=== PATIENT | male | born 1955 | race Caucasian/White ===

== ENCOUNTER → 2023-10-20 12:06 | Outpatient (REF) | payer MEDICARE, SELFPAY | LOC: HWRAD 12:06 | PROVIDERS: ATTENDING PHYSICIAN Family Medicine | DX: M25.511 Pain in right shoulder (principal) | CPT/HCPCS: 73000; 73030 ==

== ENCOUNTER 2024-06-16 03:18 | Emergency (ER) | payer MEDICARE, SELFPAY ==
[2024-06-16 03:28] VITALS: BP 143/86
--- NOTE | 2024-06-16 05:28 | ED.GENMED ---
History of Present Illness
General
Chief Complaint: Fatigue
Source: patient
Exam Limitations: none
Time Seen by Provider: 06/16/24 05:22
Nursing documentation reviewed up to this point in time: agreed with
History of Present Illness
History of Present Illness:
This is a 68-year-old gentleman who has history of Crohn's disease, chronically maintained on azathioprine. He also has history of Lyme disease 3 to 4 years ago, treated with oral antibiotics without history of or sequelae.
He states on June 03 he was helping to clean up an outdoor environment and was exposed to several ticks. He did have 3 layers of clothing on and although found some ticks on his clothing he did not find any ticks embedded on his skin.
He woke up in the middle the night with complaints of fatigue, generalized aches without a fever. He was concern for possible Lyme disease. He has not noticed a rash. No cough, no abdominal pain. No UTI symptoms.
Past History
Past History
ED Past Medical History: HTN, Hypercholesterolemia and Other (Crohn's disease)
ED Past Surgical History: Bowel resection
Social History
Tobacco: Non-smoker
Personal:
Living: with family
Employment: Employed
Family History
Family History: Other (Noncontributory)
Phy Exam
Physical Exam
Physical Exam:
GENERAL: 68-year-old gentleman appears his stated age, awake and alert, pleasant, appears in no acute distress. Vital signs within normal limits.
EYE: anicteric
NECK: Supple, nontender, no meningismus, no significant adenopathy.
ENT: oral mucosa is moist. No rhinorrhea.
CARDIAC: Regular rate and rhythm. no murmur.
LUNGS: Clear breath sounds bilaterally, no acute respiratory distress, no wheezes/rales/rhonchi
ABDOMEN: Soft, nondistended, without focal tenderness, no r/g, no cvat. normoactive BS.
NEUROLOGICAL: Alert and oriented x3, no focal neuro deficits. Gait is lo and steady.
SKIN: Warm and dry, normal color, skin intact. No rash.
MUSCULOSKELETAL: No C/C/E. peripheral pulses are full and equal b/l. No palpable tenderness.
PSYCH: Normal and appropriate interaction.
Course
Orders/Labs/Results
Orders:
Orders
06/16/24 03:34
EKG [Electrocardiogram (*1)] Urgent
Reason for Study: Fatigue / Weakness
EKG- Treatment ONCE
06/16/24 04:56
Complete Blood Count/With Diff Urgent
Comprehensive Metabolic Panel Urgent
06/16/24 05:28
Lyme Progressive Urgent
Abnormal Lab Results
06/16/24
04:56
RBC 4.38 L 10^6/uL
(4.70-6.10)
MCH 33.3 H pg
(27.0-31.0)
MPV 11.4 H fL
(7.4-10.4)
Absolute Lymphs (auto) 0.8 L 10^3/uL
(1.2-3.4)
Neutrophils % 78.7 H %
(42.2-75.2)
Lymphocytes % 11.9 L %
(20.5-51.1)
Chloride 110 H mmol/L
(98-107)
Glucose 103 H mg/dl
(70-99)
06/16/24 04:56
06/16/24 04:56
Vital Signs
Initial and Last Documented VS:
Initial Vital Signs
Temp Pulse Resp BP Pulse Ox
97.8 F 71 20 143/86 95
06/16/24 03:28 06/16/24 03:28 06/16/24 03:28 06/16/24 03:28 06/16/24 03:28
Last Documented Vital Signs
Temp Pulse Resp BP Pulse Ox
97.8 F 71 20 143/86 95
06/16/24 03:28 06/16/24 03:28 06/16/24 03:28 06/16/24 03:28 06/16/24 03:28
MDM/Problems Addressed
Differential Diagnosis Includes:
Patient exposed to ticks 2 weeks ago.
Concern for fatigue that woke him from sleep this morning.
Overall nontoxic in appearance, afebrile. No rash appreciated.
Nothing in history nor exam to suggest acute Crohn's flare.
Prior history of Lyme disease thus he should have some natural immunity however is immunocompromised.
Labs are pending. Will add a Lyme titer. Would not recommend initiation of prophylactic antibiotic especially without definitive signs of Lyme disease.
EKG is unremarkable, normal sinus rhythm, normal intervals, no acute ST-T wave abnormalities.
If routine labs are unremarkable will discharge to home. Lyme progressive is pending.
Follow-up with PCP.
Chronic conditions affecting care: Immunosuppressed
*Pulse Oximetry
Patient hypoxic: no
*EKG
Interpreted by ED Provider?: Yes
Interpretation: normal
Comparison EKG: no changes (Unchanged from previous October 2014)
Rate: normal
Rhythm: sinus
[place]: normal axis
Interval: normal interval
QRS Pattern: normal QRS
Ischemia: no ischemia
*Critical Care Note
Total Time (30-74mins, 75-104mins- exclusive of procedures): Not Applicable
ED Attending Note
-
Portions of this chart may have been created with voice recognition software.� Occasional wrong word or��sound alike� substitutions may have occurred due to the inherent limitations of voice recognition software.
Discharge Plan
Departure
Patient Disposition: Home (Routine Discharge)
Date of Disposition: 06/16/24
Time of Disposition: 05:45
Patient with high blood pressure during this ER visit?: No
Discharge Problem:
Fatigue
Instructions: Fatigue (DC)
Prescriptions:
No Action
azathioprine 50 MG tablet
150 mg PO DAILY
gemfibrozil 600 MG tablet
600 mg PO BID
multivitamin Tablet
1 tab PO DAILY
losartan 50 mg Tablet
50 mg PO DAILY
atorvastatin 20 mg Tablet
20 mg PO DAILY
Patient Comments:
pt does not know mg
diphenoxylate-atropine [Lomotil] 2.5-0.025 mg Tablet
4 tab PO DAILY
Patient Comments:
02/15/2023: last filled 12/22/22, 360 tabs for 90 days from [facility]
folic acid 400 mcg Tablet
0.4 mg PO DAILY
alfuzosin 10 mg Tablet Extended Release 24 Hr
10 mg PO QPM
cholecalciferol (vitamin D3) [Vitamin D3] 125 mcg (5,000 unit) Tablet
125 mcg PO Q48H
Vitamin B12 Tab
1 tab PO DAILY
Patient Comments:
pt does not know mg
cyclosporine [Restasis] 0.05 % Dropperette
1 drp BOTH EYES BID
Gemtesa 75 mg tablet
75 mg PO DAILY
acetaminophen [acetaminophen] 325 mg tablet
650 mg PO Q4HPRN PRN (Reason: mild pain) Qty: 1 0RF
ibuprofen 200 mg tablet
400 - 600 mg PO Q6HPRN PRN (Reason: moderate pain) Qty: 1 0RF
oxycodone 5 mg tablet
5 mg PO Q4HPRN PRN (Reason: breakthrough/severe pain) Qty: 10 0RF
polyethylene glycol 3350 [HealthyLax] 17 gram Powder In Packet
17 g PO DAILY Qty: 30 0RF
Referrals:
UNKNOWN - PT DOES,NOT KNOW [Family Provider] - Call in 1-3 days for appt
Interventions
Interventions:
*Risk Screen - Suicide Last Done: 06/16/24 03:28
*General Assessment Last Done: 06/16/24 04:55
*Neglect/Abuse Screening Last Done: 06/16/24 04:55
Discharge Date and Time
Print Language: BELGIAN
[2024-06-16 05:30] LABS: ALT (SGPT) 32 U/L (0-50); AST (SGOT) 27 U/L (17-59); Albumin 4.2 g/dl (3.5-5.0); Alkaline Phosphatase 86 U/L (38-126); Blood Urea Nitrogen 20 mg/dl (9-20); Calcium 9.3 mg/dl (8.4-10.2); Carbon Dioxide 23 mmol/L (22-30); Chloride 110 mmol/L (98-107); Glucose 103 mg/dl (70-99); Potassium 4.4 mmol/L (3.5-5.1); Sodium 142 mmol/L (135-145); Total Bilirubin 0.8 mg/dl (0.2-1.3); Total Protein 6.4 g/dl (6.3-8.2); eGFR > 60.00
[2024-06-16 05:32] LABS: % Basophils 0.4 % (0-2); % Eosinophils 2.4 % (0-6); % Immature Granulocytes 0.3 % (0-0.5); % Lymphocytes 11.9 % (20.5-51.1); % Monocytes 6.3 % (1.7-9.3); % Neutrophils 78.7 % (42.2-75.2); Absolute Eosinophils 0.2 10^3/uL (0-0.7); Absolute Lymphocytes 0.8 10^3/uL (1.2-3.4); Absolute Monocytes 0.4 10^3/uL (0.1-0.6); Absolute Neutrophils 5.3 10^3/uL (1.4-6.5); Hematocrit 40.2 % (39.0-52.0); Hemoglobin 14.6 g/dL (13.0-18.0); Mean Corp Hgb Conc. 36.3 g/dL (33.0-37.0); Mean Corpuscular Hgb 33.3 pg (27.0-31.0); Mean Corpuscular Volume 91.8 fL (80.0-94.0); Mean Platelet Volume 11.4 fL (7.4-10.4); Nucleated Red Blood Cells % 0 % (-); Platelet Count 141 10^3/uL (130-400); Red Blood Cell Count 4.38 10^6/uL (4.70-6.10); Red Cell Dist. Width 13.1 % (11.5-14.5); White Blood Cell Count 6.7 10^3/uL (4.8-10.8)
[2024-06-16 13:40] LABS: Lyme Antibody Screen, EIA Negative (Negative)
== END 2024-06-16 06:04 | disposition home or self-care (01) ==
LOC: EMR 03:18
PROVIDERS: EMERGENCY PHYSICIAN Emergency Medicine
DX: R53.83 Other fatigue (principal); M79.10 Myalgia, unspecified site; K50.90 Crohn's disease, unspecified, without complications; I10 Essential (primary) hypertension; E78.00 Pure hypercholesterolemia, unspecified; Z85.47 Personal history of malignant neoplasm of testis; Z86.19 Personal history of other infectious and parasitic diseases; Z79.899 Other long term (current) drug therapy; Z98.0 Intestinal bypass and anastomosis status; Z88.2 Allergy status to sulfonamides
CPT/HCPCS: 99283; 80053; 85025; 86618; 93005

== ENCOUNTER 2024-08-01 20:47 | Inpatient (IN) | payer MEDICARE, SELFPAY ==
[2024-08-01] VITALS (7 sets, daily range): BP systolic 106–154; BP diastolic 58–82; PULSE 60–64; BMI 26.4; BMI 26.5
[2024-08-01 13:47] LABS: % Basophils 0.6 % (0-2); % Eosinophils 1.9 % (0-6); % Immature Granulocytes 0.2 % (0-0.5); % Monocytes 12.4 % (1.7-9.3); % Neutrophils 72.9 % (42.2-75.2); Absolute Eosinophils 0.1 10^3/uL (0-0.7); Absolute Lymphocytes 0.6 10^3/uL (1.2-3.4); Absolute Monocytes 0.6 10^3/uL (0.1-0.6); Absolute Neutrophils 3.8 10^3/uL (1.4-6.5); Hematocrit 41.5 % (39.0-52.0); Hemoglobin 15.2 g/dL (13.0-18.0); Mean Corp Hgb Conc. 36.6 g/dL (33.0-37.0); Mean Corpuscular Hgb 33.4 pg (27.0-31.0); Mean Corpuscular Volume 91.2 fL (80.0-94.0); Mean Platelet Volume 11.5 fL (7.4-10.4); Nucleated Red Blood Cells % 0 % (-); Platelet Count 172 10^3/uL (130-400); Red Blood Cell Count 4.55 10^6/uL (4.70-6.10); Red Cell Dist. Width 13.3 % (11.5-14.5); White Blood Cell Count 5.2 10^3/uL (4.8-10.8)
[2024-08-01 14:10] LABS: ALT (SGPT) 20 U/L (0-50); AST (SGOT) 23 U/L (17-59); Albumin 4.2 g/dl (3.5-5.0); Alkaline Phosphatase 79 U/L (38-126); Blood Urea Nitrogen 20 mg/dl (9-20); Calcium 8.8 mg/dl (8.4-10.2); Carbon Dioxide 24 mmol/L (22-30); Chloride 105 mmol/L (98-107); Glucose 94 mg/dl (70-99); Lipase 40 U/L (23-300); Sodium 139 mmol/L (135-145); Total Bilirubin 1.2 mg/dl (0.2-1.3); Total Protein 6.8 g/dl (6.3-8.2); eGFR > 60.00
--- NOTE | 2024-08-01 15:01 | EDRN ---
Rey Dang BANDER in to see pt.
--- NOTE | 2024-08-01 15:02 | ED.GENMED ---
History of Present Illness
General
Chief Complaint: Abdominal Pain
Source: patient
Exam Limitations: none
Time Seen by Provider: 08/01/24 14:49
Nursing documentation reviewed up to this point in time: agreed with
History of Present Illness
History of Present Illness:
Patient to ED with complaint of upper abd. pain. States he has a history of Gerd, ususally takes pepcid as needed. States over the past few weeks Pepcid stopped working for him. He has a history of Crohn's and follows with Dr. Santana. He [place]
the office and was given rx for pantoprozole. States he took a dose AM and upper abd. pain became worse. He took it on Thursday and pain continued to worsen. He then stopped med. He called the GI office but has not received a return call.
To ED accompanied by spouse. Denies fever/chills. +nausea, no vomiting. +diarrhea but this is typical for him.
Past History
Past History
ED Past Medical History: GERD, HTN, Hypercholesterolemia and Other (Crohn's disease, kidney stones)
ED Past Surgical History: Bowel resection
Social History
Tobacco: Non-smoker
Personal:
Living: with family
Employment: Employed
Family History
Family History: Other (Noncontributory)
Review of Systems
Review of Systems
Allergies reviewed?: Yes
All Other Systems: ROS reviewed and negative except as documented in HPI and ROS
Constitutional: Reports no symptoms
EENT: Reports no symptoms
Respiratory: Reports no symptoms
Cardiac: Reports no symptoms
ABD/GI: Reports abdominal pain, nausea and diarrhea
: Reports no symptoms
Musculoskeletal: Reports no symptoms
Skin: Reports no symptoms
Neurological: Reports no symptoms
Psychiatric: Reports no symptoms
Phy Exam
General Physical Exam
General Presentation: mild distress
General age: appears stated age
General Skin: warm and dry
General Habitus: normal
Cardiovascular Exam
Cardiovascular Exam: regular rate/rhythm
Gastrointestinal Exam
Gastrointestinal Exam: normal bowel sounds, soft, no organomegaly, no pulsatile mass and non distended
Palpation: left upper quadrant: Moderate tenderness, left lower quadrant: Mild tenderness, right upper quadrant: Moderate tenderness and right lower quadrant: Mild tenderness
Musculoskeletal Exam
Musculoskeletal Exam: full ROM
Skin Exam
Skin Exam: normal color, warm/dry and no rash
Psychiatric Exam
Psychiatric Exam: normal mood/affect
Course
Orders/Labs/Results
Orders:
Orders
08/01/24 13:33
Electrocardiogram (*1) Urgent
Reason for Study: Abdominal Pain
EKG- Treatment ONCE
IV Insert/Care/Rem.- Treatment PRN
08/01/24 13:39
Complete Blood Count/With Diff Urgent
Comprehensive Metabolic Panel Urgent
Lipase Urgent
08/01/24 15:01
Iohexol [Omnipaque] See Protocol PO NOW STA
US Abdomen Complete/Upper Urgent
Comment:
Reason For Exam: upper abd. pain.
08/01/24 15:02
CT Abd/pel W Iv And Oral Contr Urgent
Comment:
Reason For Exam: abd. pain, hx crohns
08/01/24 17:32
0.9% Sodium Chloride 1000 ml [Nss] 1,000 ml IV BOLUS
08/01/24 20:27
Admit/Transfer Patient As Directed
Co-Sign Provider:
Level of Care: Inpatient admission
Assign to:: Medical/Surgical
Physician / Group: Jose
Diagnosis: Terminal Ileitis / Crohn's
Reason for Hospitalization: Terminal Ileitis / Crohn's
Expected length of stay greater than two midnights?: Yes
ELOS- Estimated Length of Stay in days: 3
I certify the patient meets the requirements for IP care: Yes
PRN Pain Medication Management As Directed
May give lesser potent ordered pain med per pt: Yes
preference::
Protocol:: Medication orders for pain may be administered in a
manner that supports deferring to patient preference
when the pt is:
- Requesting an ordered lesser potent pain medication.
Least to most potent pain medications are defined
as: acetaminophen < NSAID < tramadol < opioids
(morphine, oxycodone, hydromorphone).
- Requesting a lesser dose of the same medication IF
ORDERED.
- Requesting a less intrusive route of administration
if both routes are prescribed by the provider (PO <
IV).
08/01/24 20:28
Code Status As Directed
Resuscitation Status: Full Code
Abnormal Lab Results
08/01/24
13:39
RBC 4.55 L 10^6/uL
(4.70-6.10)
MCH 33.4 H pg
(27.0-31.0)
MPV 11.5 H fL
(7.4-10.4)
Absolute Lymphs (auto) 0.6 L 10^3/uL
(1.2-3.4)
Lymphocytes % 12.0 L %
(20.5-51.1)
Monocytes % 12.4 H %
(1.7-9.3)
08/01/24 13:39
08/01/24 13:39
Vital Signs
Initial and Last Documented VS:
Initial Vital Signs
Temp Pulse Resp BP Pulse Ox
97.8 F 83 17 134/78 97
08/01/24 13:30 08/01/24 13:30 08/01/24 13:30 08/01/24 13:30 08/01/24 13:30
Last Documented Vital Signs
Temp Pulse Resp BP Pulse Ox
98.3 F 80 20 153/82 98
08/01/24 19:44 08/01/24 19:44 08/01/24 19:44 08/01/24 19:44 08/01/24 19:44
*Radiology
Radiology exam reviewed: radiology read reviewed
*Pulse Oximetry
Patient hypoxic: no
*Critical Care Note
Total Time (30-74mins, 75-104mins- exclusive of procedures): Not Applicable
Update Note
Update Note:
Patient to ED with complaint of upper abdominal pain. CT confirms ileum obstruction. NO vomiting in ED. Afebrile. Discussed findings iwth patient. Will admit to hospitalist service.
ED Attending Note
-
Portions of this chart may have been created with voice recognition software.� Occasional wrong word or��sound alike� substitutions may have occurred due to the inherent limitations of voice recognition software.
Discharge Plan
Departure
Patient Disposition: Admit
Date of Disposition: 08/01/24
Time of Disposition: 18:52
Presentation/result/management discussed w/ accepting MD/DO: Hospitalist
Patient with high blood pressure during this ER visit?: No
Condition: Fair
Discharge Problem:
SBO (small bowel obstruction)
Interventions
Interventions:
*Risk Screen - Suicide Last Done: 08/01/24 13:30
*General Assessment Last Done: 08/01/24 15:20
*Neglect/Abuse Screening Last Done: 08/01/24 13:30
*ED- Fall Risk Assessment Last Done: 08/01/24 15:20
*ED COVID-19 Vaccine History Last Done: 08/01/24 15:20
RQ-Avcbif-Pkkxoxlitr Assessment Last Done: 08/01/24 19:44
[2024-08-01] MEDS: OMNIPAQUE 50 ML PO (15:24)
--- NOTE | 2024-08-01 16:14 | EDRN ---
Pt OOB to [facility] and back at this time. Pt drinking for CT and awaiting to go to [place].
[2024-08-01] MEDS: NSS 1000 IV (18:10)
--- NOTE | 2024-08-01 20:32 | HPS.HSE ---
Family Physician
-
Family Physician: Yann Plunkett
Chief Complaint
-
Abd Pain / Heartburn
History of Present Illness
Patient is a 68y M with PMH significant for Crohn's disease who presents to ED complaining of abdominal pain and heartburn x 3 weeks. Patient states that he started having severe indigestion / heartburn about 3 weeks ago. Symptoms would
frequently wake him in the night. He took OTC medications without relief. He contacted his GI office who ultimately prescribed Protonix. He took two doses of this and his symptoms seemed to worsen. Over the weekend, he had continued heartbuirn
as well as new mid-abdominal pain. No N/V. He has had watery / 'valeri' stools without noted mucus / blood.
No fevers / chills. No urinary complaints. No recent travel or known sick contacts.
Medical History
Past Medical History
Past Medical History: Reports Other
Additional Past Medical History:
Crohn's Disease
Hypertension
Testicular Cancer
Nephrolithiasis
Past Surgical History: Reports Other
Additional Past Surgical History:
Ex Lap / Small Bowel Resection (1989)
Orchiectomy
Cholecystectomy
Lithotripsy
Social History
Tobacco: Non-smoker
Alcohol: None
Drug: None
Family History
Family History: Not pertinent
Allergies / Home Medications
Allergies reflects when Allergies were last updated in [employer].
Home Medications with original date entered in [facility]
Allergy/Medication List:
Allergies
Allergy/AdvReac Type Severity Reaction Status Date / Time
infliximab (From Remicade) Allergy hives, Verified 08/01/24 18:12
drug
induced
lupus
Sulfa (Sulfonamide Allergy Hives Unverified 08/01/24 18:12
Antibiotics)
Home Medications
azathioprine 50 mg tablet 150 mg PO DAILY crohn's disease 11/07/14
alfuzosin 10 mg tablet,extended release 24 hr 10 mg PO QPM Urinary Issue 02/15/23
cyanocobalamin (vitamin B-12) 1,000 mcg tablet 1,000 mcg PO DAILY Supplement ##0 02/15/23
cyclosporine 0.05 % eye drops in a dropperette (Restasis) 1 drp BOTH EYES BID Eye Condition 02/15/23
diphenoxylate-atropine 2.5 mg-0.025 mg tablet (Lomotil) 2 tab PO DAILY diarrhea 02/15/23
folic acid 400 mcg tablet 0.4 mg PO DAILY Supplement 02/15/23
losartan 50 mg tablet 50 mg PO DAILY Blood Pressure 02/15/23
multivitamin (Daily Multi-Vitamin tablet) 1 tab PO DAILY Supplement 02/15/23
vibegron 75 mg tablet (Gemtesa) 75 mg PO HS Urinary Issue 02/15/23
atorvastatin 40 mg tablet (Lipitor) 40 mg PO QPM 08/01/24
cholestyramine 4 gram oral powder for suspension in a packet 4 g PO BID 08/01/24
meloxicam 15 mg tablet 15 mg PO HS 08/01/24
Review of Systems
-
History Source: Patient
A 12 point ROS was completed and negative except as noted: Yes
Constitutional: Denies Fever or Chills
Respiratory: Denies Cough or Trouble Breathing
Cardiac: Denies Chest Pain or Palpitations
Abdomen/GI: Reports Abdominal Pain, Diarrhea and Other (Heartburn.); Denies Nausea, Vomiting, Bloody Stools or Black Stools
: Denies Dysuria or Frequency
Musculoskeletal: Denies Joint Pain or Edema
Neurological: Denies Dizzy or Headache
Physical Exam
Vital Signs
Vital Signs
Temp Pulse Resp BP Pulse Ox
98.3 F 80 20 153/82 98
08/01/24 19:44 08/01/24 19:44 08/01/24 19:44 08/01/24 19:44 08/01/24 19:44
Physical Exam
General: Other (68y M in no acute distress.)
HEENT: Moist mucous membranes
Respiratory: Clear; No Wheezes, Rales or Rhonchi
Cardiac: S1/S2 and Regular Rhythm; No Murmur
GI: Soft, Non Distended, Normal Bowel Sounds and Other (Pos mid-abdominal / RLQ tenderness without rebound or guarding.)
Musculoskeletal: No Clubbing, No Cyanosis and No Edema
Neuro: AO x 3
Laboratory Results
-
08/01/24 13:39
08/01/24 13:39
Laboratory Results
Total Bilirubin 1.2 mg/dl (0.2-1.3) 08/01/24 13:39
AST 23 U/L (17-59) 08/01/24 13:39
ALT 20 U/L (0-50) 08/01/24 13:39
Alkaline Phosphatase 79 U/L (38-126) 08/01/24 13:39
Lipase 40 U/L (23-300) 08/01/24 13:39
Impression/Plan
-
A/P: Patient is a 68y M with PMH significant for Crohn's disease who presents to ED complaining of heartburn x 3 weeks and now abdominal pain.
Terminal Ileitis / Crohn's Disease
Partial SBO secondary to the above
- Admit for further evaluation and treatment.
- NPO, IVF, pain control and antiemetics,.
- GI evaluation for additional recommendations.
- Check stool studies, calprotectin this evening with additional recs to follow in the AM.
- Colorectal Surgery evaluation.
- Monitor for any N/V or worsening abdominal pain and consider NG decompression if needed.
- IV PPI for now as heartburn remains his primary complaint.
Benign Hypertension
- PO medications on hold acutely.
DVT Prophylaxis: Lovenox
Code Status: Full
[2024-08-01] MEDS: LR 1000 IV (21:56)
--- NOTE | 2024-08-01 22:21 | PTCARENOTE ---
Addendum entered by Stacey Hays RN 08/01/24 22:49:
LR @100ml/hr
Original Note:
Received pt from ED at 21:30. Pt aaox3, able to make needs known. Admission assessment completed. Pt ambulatory in room. No c/o pain at this time. VSS. NSS@100ml/hr through R [facility]. Pt made aware a stool sample is needed. Collection hat in toilet. Call
perez and belongings within reach. Care ongoing.
[2024-08-02] MEDS: TORADOL 15 MG IV (00:30)
[2024-08-02 06:10] LABS: Hematocrit 39.7 % (39.0-52.0); Hemoglobin 14.3 g/dL (13.0-18.0); Mean Corpuscular Hgb 32.9 pg (27.0-31.0); Mean Corpuscular Volume 91.3 fL (80.0-94.0); Mean Platelet Volume 11.8 fL (7.4-10.4); Platelet Count 157 10^3/uL (130-400); Red Blood Cell Count 4.35 10^6/uL (4.70-6.10); Red Cell Dist. Width 13.1 % (11.5-14.5); White Blood Cell Count 4.6 10^3/uL (4.8-10.8)
[2024-08-02 06:33] LABS: Blood Urea Nitrogen 15 mg/dl (9-20); Calcium 8.8 mg/dl (8.4-10.2); Carbon Dioxide 23 mmol/L (22-30); Chloride 109 mmol/L (98-107); Estimated Creatinine Clearance 65 ml/min; Glucose 74 mg/dl (70-99); Potassium 3.9 mmol/L (3.5-5.1); Sodium 141 mmol/L (135-145); eGFR > 60.00
[2024-08-02 07:27] VITALS: BP 151/81
[2024-08-02] MEDS: LR 1000 IV ×2 (07:59→18:41)
[2024-08-02] MEDS: NSS (PRESERVATIVE FREE) 10 ML IV ×2 (07:59→20:14)
[2024-08-02] MEDS: PROTONIX IV 40 MG IV ×2 (07:59→20:13)
[2024-08-02] MEDS: IMURAN 150 MG PO (08:02)
--- NOTE | 2024-08-02 09:01 | CON.GI ---
Addendum entered and electronically signed by Michelle Rendon MD 08/02/24 14:20:
He also has been on meloxicam as outpatient which we told him to discontinue may be exacerbating his flare and avoid all other NSAIDs
Addendum entered and electronically signed by Michelle Rendon MD 08/02/24 11:31:
I saw and examined the patient.
The LIVE IN HOUSEKEEPER's note was reviewed and I agree with the note.
Comment: This is a 68 old male with past medical history as listed below including Crohn's disease involving both small and large bowel diagnosed at the age of 18 he has had small bowel resection in the s and has about 6 feet of small bowel
remaining also has prior history of anal fistula repair. He had drug-induced lupus with Remicade and had to stop it and also had tried Cimzia but did not have improvement of symptoms in the past on it. He has been on Imuran 150 mg for the past
couple of years and does have intermittent episodes of diarrhea and uses Lomotil and Questran as needed. His last colonoscopy was in [address] Cai which showed mild ulceration in the neoterminal ileum he also has prior history of gallstone
pancreatitis status post cholecystectomy in 2022 and rest of the past medical history as listed below who presented to the emergency room with abdominal pain which has been for the past 2 months but worsening since yesterday. He also had been
having more symptoms of regurgitation and reflux for the past 2 months and has been using Pepcid. He also stopped taking his Questran on and had stopped taking Lomotil even prior to that. when he called our office with increasing symptoms
was started on pantoprazole on 07/26/2024. On admission CT was suggestive of ileitis with partial small bowel obstruction. He has not passed any flatus since yesterday. His last bowel movement was yesterday afternoon.
Assessment and plan h/o Crohn's ileocolitis status post small bowel resection in and also has prior history of anal fistula repair who now presents with symptoms of partial small bowel obstruction with evidence of ileitis in the neoterminal
ileum which may be related to Crohn's flare with possible stricturing disease. Will start him on Solu-Medrol 20 mg every 8 hours and will also get hepatitis serologies and QuantiFERON. He is currently on Imuran 150 mg will continue for now. there
was no evidence of abscess or fistulas on the CT. will start him on Flagyl will hold on Levaquin or Cipro for now. He has an appointment with Dr. Cai on 08/09 and I dw patient and also dw with Dr. Cai will need to be started on Biologics
possible Skyrizi versus Damien inhibitor she will discuss further with patient when she sees him in the office. He had drug induced lupus with Remicaide and did not respond to Cimzia in past. Hopefully his partial small bowel obstruction resolves with
steroids and Flagyl and could avoid surgery. If he starts having nausea or vomiting will place NG tube.
Original Note:
Consultation
-
Date/Time Consultation Requested: 08/01/242149
Date/Time Consultation Performed: 08/02/24 0750
Requesting Provider: Dr. Garcia
Performing Provider: Dr. Rendon/SEGUN Hernadez
Reason for Consultation: PSBO/crohn's
Medical History
Chief Complaint / HPI
Chief Complaint: abd pain
History of Present Illness:
68year-old male with past medical history of small bowel/colon Crohn's disease diagnosed at age 18 status post resection majority of the small bowel (in the ) except for 6 feet, history of anal fistula repair. He has tried Remicade in the past
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 Tried Cimzia in the past without improvement. Has been maintained on Imuran 150 mg daily for many years as well as Lomotil , history of hypertension, hyperlipidemia, BPH, testicular cancer status post
right orchiectomy, sciatica, nephrolithiasis, gallstone pancreatitis status postcholecystectomy 02/18/2023 with most recent colonoscopy performed in May 2022 showing mild ulceration in the neoterminal ileum in the ileocecal valve, quiescent
colitis in the rest of the colon was unremarkable. No chronic inflammation in the biopsies from the small bowel and the colon. Who presents to the emergency room with abdominal pain and GERD like symptoms. We are asked to evaluate for partial
small bowel obstruction. The patient states that approximately 3-4 months ago the Lomotil that he was using for his chronic loose stools stopped working as much. He then switched to cholestyramine twice a day that he had for potential bile salt
diarrhea. This in turn gave him thicker stools. Approximately 2 months ago he started noticing some heartburn-like symptoms before lunchtime and in the middle the night. At that time he started using Pepcid which he states would work for a small
amount of time. He then would have 'waves of pain and soreness in his upper abdomen' he states this did not feel like a typical flare like situation for him. He denied any fevers, chills, nausea, vomiting, NSAIDs, however is on meloxicam, alcohol,
smoking, joint pains or rashes. No diarrhea symptoms however 'sand-like bowel movements' since starting the cholestyramine. No signs of rectal bleeding or mucus within the stools. He did call our office and ask for medication for 'GERD' on
07/26/2024. A prescription was sent in for pantoprazole 40 mg daily. He states that he took this with some improvement of his GERD like symptoms however by the next day he states he started feeling signs as if he was having a 'obstruction'. He
stopped the cholestyramine by . He states his abdominal pain felt worse and more so in the lower abdomen. He is still having bowel movements. His last one was yesterday this was formed. He is not passing as much flatus. He has been
n.p.o. and has not had a bowel movement since yesterday at 1230.
Past Medical History
Past Medical History: Cancer (Testicular cancer), HTN, Hypercholesterolemia and Other (Crohn's disease of the small and large bowel, anal fistula,Sciatica, nephrolithiasis, gallstone pancreatitis)
Past Surgical History: Bowel Resection (Resection majority of small bowel except for 6 ft () ), Cholecystectomy and Other (Right orchiectomy, left thumb surgery, tonsillectomy adenoidectomy, hypospadias repair,)
Social History
Tobacco: Non-Smoker
Alcohol: None
Drug: None
Family History
Family History: Other (No family history gastrointestinal malignancy)
Allergies / Home Medications
Allergy/AdvReac Type Severity Reaction Status Date / Time
infliximab (From Remicade) Allergy hives, Verified 08/01/24 18:12
drug
induced
lupus
Sulfa (Sulfonamide Allergy Hives Unverified 08/01/24 18:12
Antibiotics)
�Medication �Instructions �Recorded
azathioprine 50 mg tablet 150 mg PO DAILY crohn's disease 11/07/14
alfuzosin 10 mg tablet,extended 10 mg PO QPM Urinary Issue 02/15/23
release 24 hr
cyanocobalamin (vitamin B-12) 1,000 mcg PO DAILY Supplement ##0 02/15/23
1,000 mcg tablet
cyclosporine 0.05 % eye drops in a 1 drp BOTH EYES BID Eye Condition 02/15/23
dropperette (Restasis)
diphenoxylate-atropine 2.5 2 tab PO DAILY diarrhea 02/15/23
mg-0.025 mg tablet (Lomotil)
folic acid 400 mcg tablet 0.4 mg PO DAILY Supplement 02/15/23
losartan 50 mg tablet 50 mg PO DAILY Blood Pressure 02/15/23
multivitamin (Daily Multi-Vitamin 1 tab PO DAILY Supplement 02/15/23
tablet)
vibegron 75 mg tablet (Gemtesa) 75 mg PO HS Urinary Issue 02/15/23
atorvastatin 40 mg tablet (Lipitor) 40 mg PO QPM High Cholesterol 08/01/24
cholestyramine 4 gram oral powder 4 g PO BID High Cholesterol 08/01/24
for suspension in a packet
meloxicam 15 mg tablet 15 mg PO HS Pain 08/01/24
Review of Systems
-
All other systems: A 12 pt ROS was Negative except as stated above in HPI
Vital Signs
Temp Pulse Resp BP Pulse Ox
97.5 F 72 16 151/81 96
08/02/24 07:27 08/02/24 07:27 08/02/24 07:27 08/02/24 07:27 08/02/24 07:27
Physical Exam
Exam
General: No Apparent Distress
HEENT: Anicteric
Respiratory: Clear
Cardiac: Regular Rhythm
GI: Soft, Non Distended, Tender (Mild tenderness diffusely worse in right lower quadrant) and Other (Bowel sounds present but hypoactive best heard in left lower quadrant)
Musculoskeletal: No Edema
Skin: Warm and Dry
Neuro: AO x 3
Psych: Calm
Results
WBC 4.6 10^3/uL (4.8-10.8) L 08/02/24 05:32
Hgb 14.3 g/dL (13.0-18.0) 08/02/24 05:32
Hct 39.7 % (39.0-52.0) 08/02/24 05:32
MCV 91.3 fL (80.0-94.0) 08/02/24 05:32
Plt Count 157 10^3/uL (130-400) 08/02/24 05:32
Absolute Neuts (auto) 3.8 10^3/uL (1.4-6.5) 08/01/24 13:39
Sodium 141 mmol/L (135-145) 08/02/24 05:32
Potassium 3.9 mmol/L (3.5-5.1) 08/02/24 05:32
Chloride 109 mmol/L (98-107) H 08/02/24 05:32
Carbon Dioxide 23 mmol/L (22-30) 08/02/24 05:32
BUN 15 mg/dl (9-20) 08/02/24 05:32
Creatinine 1.0 mg/dL (0.7-1.3) 08/02/24 05:32
Calcium 8.8 mg/dl (8.4-10.2) 08/02/24 05:32
Total Bilirubin 1.2 mg/dl (0.2-1.3) 08/01/24 13:39
AST 23 U/L (17-59) 08/01/24 13:39
ALT 20 U/L (0-50) 08/01/24 13:39
Alkaline Phosphatase 79 U/L (38-126) 08/01/24 13:39
Lipase 40 U/L (23-300) 08/01/24 13:39
Diagnostic Image Results:
CT Abd/Pelvis with oral and Iv contrast 08/01/24:
1. Severe wall thickening of the distalmost terminal ileum extending to the ileocecal valve with associated upstream small bowel dilatation measuring up to 6.1 cm, consistent with obstruction. Findings likely reflect active changes of inflammatory
bowel disease/Crohn's. Underlying neoplasm not excluded.
US Abd 08/01/24:
1. Increased echogenicity in the liver, compatible with underlying hepatocellular disease, which most commonly relates to fatty infiltration of the liver.
2. Borderline splenomegaly.
3. Otherwise essentially unremarkable abdominal ultrasound status post cholecystectomy, as detailed above.
Prior GI Procedures:
Colonoscopy: 06/10/2022 (Dr. Cai): The perianal and digital rectal examinations were normal.
Patchy mild inflammation characterized by shallow ulcerations was found
in the terminal ileum. Biopsies were taken with a cold forceps for
histology.
Normal mucosa was found in the entire colon. Biopsies were taken with a
cold forceps for histology.
A few small-mouthed diverticula were found in the sigmoid colon.
Colonoscopy 08/05/2019 (Dr. Cai):
- Preparation of the colon was fair.
- A few ulcers in the javy-terminal ileum. Biopsied.
- A single (solitary) ulcer at the ileocecal valve.
Biopsied.
- Normal mucosa in the entire examined colon. Biopsied.
- Localized mild inflammation was found in the rectum.
Biopsied.
- Anal papilla(e) were hypertrophied.
������Upper GI and small bowel follow-through in April 2016-6 feet of small bowel remaining, no active Crohn's disease.
�������MRI/MRCP in December 2008 and October 2011 normal
�������Colonoscopy in March 2014-complete until neoterminal ileum to 15 cm, normal except moderate to severe ulceration in the most distal part, biopsies with focal minimal acute inflammation and villous blunting, anastomosis with moderate
ulceration with erythema and edema, biopsies from the anastomosis, left colon and rectum within normal limits, transverse colon biopsies with focal minimal acute inflammation.
�������Colonoscopy in March 2012, complete to neoterminal ileum up to 20 cm with normal proximal 10 cm per distal 10 cm with mild edema and severe ulceration, biopsies normal, colon biopsies normal, biopsies of the anastomosis with mild chronic
inflammation, transverse colon and left colon biopsies normal, rectum biopsies with focal mild acute inflammation.
�������Colonoscopy in January 2012, complete to neoterminal ileum to 15 cm with ulceration at the anastomosis and distal 3 cm were otherwise normal, biopsies normal, most distal 3 7 m of rectum with mild superficial ulceration and distal 20 cm with
mild erythema. Biopsies from the anastomosis, transverse colon and left colon within normal limits.
�������Questionable enterocolic fistula noted double-balloon enterorography [address]/small bowel follow-through/enteroclysis showed rapid transit with dilated jejunal loops but no fistula.
�������back when he was 18 years old.
Assessment / Plan
-
68year-old male with past medical history of small bowel/colon Crohn's disease diagnosed at age 18 status post resection majority of the small bowel (in the ) except for 6 feet, history of anal fistula repair. He has tried Remicade in the past
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 Tried Cimzia in the past without improvement. Has been maintained on Imuran 150 mg daily for many years as well as Lomotil , history of hypertension, hyperlipidemia, BPH, testicular cancer status post
right orchiectomy, sciatica, nephrolithiasis, gallstone pancreatitis status postcholecystectomy 02/18/2023 with most recent colonoscopy performed in May 2022 showing mild ulceration in the neoterminal ileum in the ileocecal valve, quiescent
colitis in the rest of the colon was unremarkable. No chronic inflammation in the biopsies from the small bowel and the colon. Who presents to the emergency room with abdominal pain and GERD like symptoms. We are asked to evaluate for partial
small bowel obstruction. Patient with increase in diarrhea not treated by Lomotil more recently over the past 4 to 5 months. Patient switched to cholestyramine with thickening of bowel movements. Increase in reflux symptoms over the past 2 months.
With worsening of abdominal pain over the past couple days. CT findings with severe wall thickening of the distal most terminal ileum extending to the ileocecal valve with associated upstream small bowel dilatation. WBC 4.6, hemoglobin 14.3,
hematocrit 39.7, platelets 157, ESR pending, CRP 24.7, sodium 141, potassium 3.9, chloride 109, CO2 23, BUN 15, creatinine 1.0, glucose 74, total bilirubin 1.2, AST 23, ALT 20, alk phos 79, fecal [place] Pro pending as patient has not had a bowel
movement since yesterday afternoon. He is without any nausea or vomiting. His abdomen is not distended.
Impression:
Small bowel obstruction/partial small bowel obstruction (CT findings of severe wall thickening of the distalmost terminal ileum extending to the ileocecal valve)
History of Crohn's disease of the small bowel/colon
--Status post resection majority of small bowel () except for 6 feet
--Currently on Imuran 150 mg daily
--Previously was taking Lomotil, however was not working and stopped about 4 to 5 months ago. Switch to cholestyramine twice a day, last dose on
Plan:
-NPO
-IVF
-Hold on NGT for now as patient comfortable, if with N/V or increased abd distention then will place NGT.
-CRS consult pending
-Await ESR and fecal calpro
-Start SoluMedrol 20 mg IV q 8 hrs
-Start Flagyl 500 mg IV q 8 hrs
-Check QuantiFERON gold, lipid panel, hepatitis A antibody total, hepatitis B surface antibody, hepatitis B core antibody with reflex, hepatitis B surface antigen, hepatitis C antibody
-CBC, BMP in a.m.
-Continue pantoprazole 40 mg IV twice daily
-Encourage ambulation
-Continue Lovenox subcu
-Continue Imuran 150 mg p.o. daily
-Follow-up appointment made with Dr. Cai on 08/09/2024 at 12 PM
-
-
Thank you for consultation and allowing me to participate in the patient's care. Please call the sedimentationist GI physician during the after hours with any questions or concerns.
[2024-08-02 10:23] LABS: Erythrocyte Sed Rate 24 mm/hour (0-20)
[2024-08-02] MEDS: SOLU-MEDROL PF 20 MG IV ×2 (11:17→18:47)
[2024-08-02] MEDS: FLAGYL 500 MG 100 IV ×2 (11:17→18:45)
--- NOTE | 2024-08-02 12:37 | W.PN.HOSP.TC ---
Today's Communication/Plan
-
IV steroids
IV antibiotics
Surgery eval
repeat abd xray in am
Assessment / Plan
Assessment / Plan
General: In no acute distress
HEENT: Moist mucous membranes
Respiratory: Clear; No Wheezes, Rales or Rhonchi
Cardiac: S1/S2 and Regular Rhythm; No Murmur
GI: Soft, Non Distended, Normal Bowel Sounds and Other (Pos mid-abdominal / RLQ tenderness without rebound or guarding.) midline scar noted
Musculoskeletal: No Clubbing, No Cyanosis and No Edema
Neuro: AO x 3
A/P: Patient is a 68y M with PMH significant for Crohn's disease who presents to ED complaining of heartburn x 3 weeks and now abdominal pain.
Terminal Ileitis / Crohn's Disease concern for flare of
Partial SBO secondary to the above
- NPO, IVF, pain control and antiemetics,.
- Monitor for any N/V or worsening abdominal pain and consider NG decompression if needed.
- IV PPI for now as heartburn remains his primary complaint.
- Patient started on IV Solu-Medrol and IV Flagyl.
- Repeat abdominal x-ray in the morning.
- Continue with conservative measures for now.
- Surgery input
Benign Hypertension
- PO medications on hold acutely.
Chronic immunosuppressive state
-Imuran continued
DVT Prophylaxis: Lovenox
Code Status: Full
Anticipated Discharge: > 48 hours
Subjective/Interval History
-
Date of Service: August 02, 2024
Denies any nausea or vomiting
States his symptoms started last week with abdominal pain and was started on PPI as outpatient
States had a bowel movement yesterday morning
None since then
Objective Data
-
Labs:
Laboratory Results
08/02/24
05:32
WBC 4.6 L
Hgb 14.3
Hct 39.7
Plt Count 157
Sodium 141
Potassium 3.9
Chloride 109 H
Carbon Dioxide 23
BUN 15
Creatinine 1.0
Glucose 74
Calcium 8.8
Vital Signs:
Vital Signs
Temp Pulse Resp BP Pulse Ox
97.5 F 72 16 151/81 96
08/02/24 07:27 08/02/24 07:27 08/02/24 07:27 08/02/24 07:27 08/02/24 07:27
I&O
08/01/24 08/02/24 08/03/24
06:59 06:59 06:59
Intake Total 480 / 480
Balance 480 / 480
--- NOTE | 2024-08-02 13:23 | CM ---
CM following re: discharge planning.
Reviewed pt's chart, met with pt.
Pt is a 68 year old male, admitted with primary dx of Terminal Ileitis / Crohn's Disease. Partial SBO secondary to the above. PMH significant for Crohn's disease.
Pt reports he lives with spouse 2SH, 2 steps to enter, has 2 supportive children. Pt described himself as independent in all areas [employer], drives.
PCP: Yann Plunkett
Pharmacy: [facility]
D/C plan: home with anticipated no needs. Spouse to transport at discharge.
CM will follow with discharge plan updates as hospitalization progresses
[2024-08-02 13:29] LABS: Hepatitis B Surface Antigen Negative (Negative)
[2024-08-02 13:47] LABS: Hepatitis A Antibody, Total Negative (Negative); Hepatitis B Core Ab, Total Negative (Negative); Hepatitis C Antibody Negative (Negative)
--- NOTE | 2024-08-02 14:24 | CON.GS ---
Consultation
-
Date/Time Consultation Requested: 08/02/2024
Date/Time Consultation Performed: 08/02/2024
Medical History
-
Chief Complaint: GERD and abdominal pain
History of Present Illness:
Patient is a 68 yo M with a PMH notable for HTN, HLD, testicular cancer s/p RIGHT orchiectomy, s/p hypospadias repair, s/p laparoscopic cholecystectomy by Doris in 01/2023, and perianal and stricturing Crohn's disease s/p exploratory laparotomy
and small bowel resection in the and perianal fistula management years ago. Mr. Wilder presents with 3 to 4 weeks of worsening reflux symptoms. On Thursday (07/29) he developed worsening abdominal pain. His symptoms persisted prompting
presentation to the ER. No episodes of nausea or vomiting. Last bowel movement and flatus was yesterday (08/01). Denies any prior issues with a bowel obstruction over the past several years. He has been dealing with issues of diarrhea and has been
using Cholestyramine previously used Lomotil. He follows with Dr. Cai for a GI physician. He has been on Imuran monotherapy. His last colonoscopy was in 2022 and notable for mild ulcerations and erythema of the colon and including his
terminal ileum.
Of note, currently he already states that he feels better (less abdominal pain and distention) after 1 dose of steroids and antibiotics.
Past Medical History
Past Medical History: Cancer (R testicular), HTN, Hypercholesterolemia and Other (Crohn's disease)
Past Surgical History: Bowel Resection (Ex lap and SBR in ), Cholecystectomy, Urological (Hypospadias repair, RIGHT orchiectomy) and Other (Perianal fistula)
Social History
Tobacco: Non-Smoker
Alcohol: None
Drug: None
Family History
Family History: Reviewed & Noncontributory
Allergies / Home Medications
Allergy/AdvReac Type Severity Reaction Status Date / Time
infliximab (From Remicade) Allergy hives, Verified 08/01/24 18:12
drug
induced
lupus
Sulfa (Sulfonamide Allergy Hives Unverified 08/01/24 18:12
Antibiotics)
�Medication �Instructions �Recorded �Confirmed �Type
azathioprine 50 mg tablet 150 mg PO DAILY crohn's disease 11/07/14 08/01/24 History
alfuzosin 10 mg tablet,extended 10 mg PO QPM Urinary Issue 02/15/23 08/01/24 History
release 24 hr
cyanocobalamin (vitamin B-12) 1,000 mcg PO DAILY Supplement ##0 02/15/23 08/01/24 History
1,000 mcg tablet
cyclosporine 0.05 % eye drops in a 1 drp BOTH EYES BID Eye Condition 02/15/23 08/01/24 History
dropperette (Restasis)
diphenoxylate-atropine 2.5 2 tab PO DAILY diarrhea 02/15/23 08/01/24 History
mg-0.025 mg tablet (Lomotil)
folic acid 400 mcg tablet 0.4 mg PO DAILY Supplement 02/15/23 08/01/24 History
losartan 50 mg tablet 50 mg PO DAILY Blood Pressure 02/15/23 08/01/24 History
multivitamin (Daily Multi-Vitamin 1 tab PO DAILY Supplement 02/15/23 08/01/24 History
tablet)
vibegron 75 mg tablet (Gemtesa) 75 mg PO HS Urinary Issue 02/15/23 08/01/24 History
atorvastatin 40 mg tablet (Lipitor) 40 mg PO QPM High Cholesterol 08/01/24 08/01/24 History
cholestyramine 4 gram oral powder 4 g PO BID High Cholesterol 08/01/24 08/01/24 History
for suspension in a packet
meloxicam 15 mg tablet 15 mg PO HS Pain 08/01/24 08/01/24 History
Review of Systems
-
A 10 point review of systems was completed, and was negative except as per HPI.
Physical Exam
Vital Signs
Temp Pulse Resp BP Pulse Ox
97.5 F 72 16 151/81 96
08/02/24 07:27 08/02/24 07:27 08/02/24 07:27 08/02/24 07:27 08/02/24 07:27
08/01/24 08/02/24 08/03/24
06:59 06:59 06:59
Actual Weight 74.48 kg
Body Mass Index (BMI) 26.5
Lab Results
08/02/24 05:32
08/02/24 05:32
WBC 4.6 10^3/uL (4.8-10.8) L 08/02/24 05:32
Hgb 14.3 g/dL (13.0-18.0) 08/02/24 05:32
Hct 39.7 % (39.0-52.0) 08/02/24 05:32
Plt Count 157 10^3/uL (130-400) 08/02/24 05:32
Abs Immat Gran (auto) 0.0 10^3/uL (0-0.05) 08/01/24 13:39
Neutrophils % 72.9 % (42.2-75.2) 08/01/24 13:39
Physical Exam
General: Well Developed, Well Nourished and No Apparent Distress
Respiratory: Non Labored Respirations
Cardiac: Regular Rhythm
GI: Soft, Tender (Minimal in central lower abdomen), Distended (Mild, no tympany), Incisions (Well healed) and Other (Non-peritoneal)
Musculoskeletal: No Edema
Skin: Warm and Dry
Neuro: Nonfocal/Grossly Intact
Data Reviewed
-
CT Scan: Image Personally Visualized and interpreted and Report Reviewed by me
Labs: Labs Reviewed by me
Assessment / Plan
-
Patient is a 68 yo M p/w partial SBO related to a Crohn's flare
No clinical or radiographic evidence of a complete obstruction. Contrast passes through his prior anastomosis and into the colon. His terminal ileum and anastomosis appears to be inflamed and edematous. No evidence of perforation, abscess, or
fistula formation. GI consult noted, case reviewed with the team. No plans for surgical intervention at this time. We discussed that should he develop stricturing issues at his neoterminal ileum that he may best be treated with endoscopic balloon
dilation of this area given his extensive prior resection and concerns/risks for short gut with further bowel resections. Plan for treatment with steroids, Imuran, and antibiotics with Metronidazole. He will likely need to be on a maintenance
immunologic. NPO and IV fluids for now. Repeat abdominal x-ray ordered for tomorrow. Dietary advancement pending his symptoms. All questions answered. Further care per GI. Call with any questions or concerns.
-- No plans or indication or surgery at this time
-- GI consult noted, treatment for Crohn's flare with steroids, Imuran, and antibiotics with Metronidazole
-- NPO, IVF, dietary advancement per GI (based on response to treatment an repeat X-rays tomorrow)
-- Call with questions or concerns
[2024-08-02 15:10] LABS: Hepatitis B Surface Antibody Indeterminate
[2024-08-02 15:44] VITALS: BP 155/85
[2024-08-02 16:26] VITALS: BMI 26.5
[2024-08-02] MEDS: LOVENOX 40 MG SC (18:46)
[2024-08-03] MEDS: SOLU-MEDROL PF 20 MG IV ×3 (02:09→17:54)
[2024-08-03] MEDS: FLAGYL 500 MG 100 IV ×3 (02:10→17:52)
[2024-08-03] MEDS: LR 1000 IV (06:33)
[2024-08-03 07:01] VITALS: BP 161/70
[2024-08-03 08:08] LABS: Hematocrit 38.6 % (39.0-52.0); Hemoglobin 14.2 g/dL (13.0-18.0); Mean Corp Hgb Conc. 36.8 g/dL (33.0-37.0); Mean Corpuscular Hgb 32.9 pg (27.0-31.0); Mean Corpuscular Volume 89.6 fL (80.0-94.0); Mean Platelet Volume 11.6 fL (7.4-10.4); Platelet Count 191 10^3/uL (130-400); Red Blood Cell Count 4.31 10^6/uL (4.70-6.10); Red Cell Dist. Width 12.7 % (11.5-14.5); White Blood Cell Count 5.4 10^3/uL (4.8-10.8)
[2024-08-03] MEDS: NSS (PRESERVATIVE FREE) 10 ML IV ×2 (08:12→19:41)
[2024-08-03] MEDS: PROTONIX IV 40 MG IV ×2 (08:13→19:42)
[2024-08-03] MEDS: IMURAN 150 MG PO (08:13)
[2024-08-03] MEDS: FOLVITE 1 MG PO (08:14)
[2024-08-03] MEDS: COZAAR 50 MG PO (08:17)
[2024-08-03] MEDS: RESTASIS 0.05% OPHTHALMIC EMULSION BOTH EYES ×3 (08:18→19:56)
[2024-08-03] MEDS: THERAGRAN 1 TABLET PO (08:18)
[2024-08-03] MEDS: VITAMIN B-12 1000 MCG PO (08:19)
[2024-08-03 08:39] LABS: Blood Urea Nitrogen 17 mg/dl (9-20); Calcium 8.9 mg/dl (8.4-10.2); Carbon Dioxide 21 mmol/L (22-30); Chloride 108 mmol/L (98-107); Estimated Creatinine Clearance 72 ml/min; Glucose 97 mg/dl (70-99); HDL Cholesterol 29 mg/dl; LDL Cholesterol, Calculated 34 mg/dl; Potassium 4.7 mmol/L (3.5-5.1); Sodium 140 mmol/L (135-145); Total Cholesterol 80 mg/dl (50-199); Triglyceride 89 mg/dl (10-149); Very Low Density Lipoprotein 17 mg/dl (0-30); eGFR > 60.00
--- NOTE | 2024-08-03 09:34 | W.PN.GI.CBS2 ---
Today's Communication / Plan
-
clears
KUB
Assessment / Plan
-
68year-old male with past medical history of small bowel/colon Crohn's disease diagnosed at age 18 status post resection majority of the small bowel (in the ) except for 6 feet, history of anal fistula repair. He has tried Remicade in the past
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 Tried Cimzia in the past without improvement. Has been maintained on Imuran 150 mg daily for many years as well as Lomotil , history of hypertension, hyperlipidemia, BPH, testicular cancer status post
right orchiectomy, sciatica, nephrolithiasis, gallstone pancreatitis status postcholecystectomy 02/18/2023 with most recent colonoscopy performed in May 2022 showing mild ulceration in the neoterminal ileum in the ileocecal valve, quiescent
colitis in the rest of the colon was unremarkable. No chronic inflammation in the biopsies from the small bowel and the colon. Who presents to the emergency room with abdominal pain and GERD like symptoms. We are asked to evaluate for partial
small bowel obstruction. Patient with increase in diarrhea not treated by Lomotil more recently over the past 4 to 5 months. Patient switched to cholestyramine with thickening of bowel movements. Increase in reflux symptoms over the past 2 months.
With worsening of abdominal pain over the past couple days. CT findings with severe wall thickening of the distal most terminal ileum extending to the ileocecal valve with associated upstream small bowel dilatation. WBC 4.6, hemoglobin 14.3,
hematocrit 39.7, platelets 157, ESR pending, CRP 24.7, sodium 141, potassium 3.9, chloride 109, CO2 23, BUN 15, creatinine 1.0, glucose 74, total bilirubin 1.2, AST 23, ALT 20, alk phos 79, fecal Bism[place] Pro pending as patient has not had a bowel
movement since yesterday afternoon. He is without any nausea or vomiting. His abdomen is not distended.
Impression:
Small bowel obstruction/partial small bowel obstruction (CT findings of severe wall thickening of the distalmost terminal ileum extending to the ileocecal valve)-most likely from flare with possible stricturing Crohn's
History of Crohn's disease of the small bowel/colon
--Status post resection majority of small bowel (1990s) except for 6 feet
--Currently on Imuran 150 mg daily
--Previously was taking Lomotil, however was not working and stopped about 4 to 5 months ago. Switch to cholestyramine twice a day, last dose on
Plan:
-Sx improving resolving PSBO
-will start clears
-CRP trending down
-Continue SoluMedrol 20 mg IV q 8 hrs
-Continue Flagyl 500 mg IV q 8 hrs
-Check QuantiFERON gold, lipid panel, hepatitis A antibody total, hepatitis B surface antibody, hepatitis B core antibody with reflex, hepatitis B surface antigen, hepatitis C antibody
-Continue pantoprazole 40 mg IV twice daily
-Encourage ambulation
-Continue Lovenox subcu
-Continue Imuran 150 mg p.o. daily and folic acid
-can resume his OP meds except hold the melxicam, Questran and Lomotil
-Avoid NSAIDS
-Follow-up appointment made with Dr. Cai on 08/09/2024 at 12 PM to discuss starting biologics
Subjective
Subjective
Date of Service: August 03, 2024
His pain is markedly improved and he is feeling less bloated. He is passing flatus he also had a bowel movement yesterday
Objective
Data Reviewed
Laboratory Data:
Laboratory Results
Laboratory Tests
08/02/24 08/03/24
05:32 06:41
C-Reactive Protein 24.70 H 15.70 H
08/03/24 06:41
08/03/24 06:41
Laboratory Results
Total Bilirubin 1.2 mg/dl (0.2-1.3) 08/01/24 13:39
AST 23 U/L (17-59) 08/01/24 13:39
ALT 20 U/L (0-50) 08/01/24 13:39
Alkaline Phosphatase 79 U/L (38-126) 08/01/24 13:39
Lipase 40 U/L (23-300) 08/01/24 13:39
Vital Signs and I&O:
Vital Signs
Temp Pulse Resp BP Pulse Ox
98.1 F 70 18 161/70 96
08/03/24 07:01 08/03/24 08:17 08/03/24 07:01 08/03/24 08:17 08/03/24 07:01
I&O
08/02/24 08/03/24 08/04/24
06:59 06:59 06:59
Intake Total 480 / 480
Balance 480 / 480
Physical Exam
Physical Exam
Cardiology: Normal Sinus Rhythm
Pulmonary: Clear
GI: Soft, Non Distended, Non Tender and Other (hypoactive BS)
--- NOTE | 2024-08-03 10:53 | W.PN.HOSP.TC ---
Today's Communication/Plan
-
clears if tolerating stop IVF
IV steroids
IV abx
Assessment / Plan
Assessment / Plan
General: In no acute distress
HEENT: Moist mucous membranes
Respiratory: Clear; No Wheezes, Rales or Rhonchi
Cardiac: S1/S2 and Regular Rhythm; No Murmur
GI: Soft, Non Distended, Normal Bowel Sounds and Other (Pos mid-abdominal / RLQ tenderness without rebound or guarding.) midline scar noted
Musculoskeletal: No Clubbing, No Cyanosis and No Edema
Neuro: AO x 3
A/P: Patient is a 68y M with PMH significant for Crohn's disease who presents to ED complaining of heartburn x 3 weeks and now abdominal pain.
Terminal Ileitis / Crohn's Disease concern for flare UP
Partial SBO secondary to the above
- IVF, pain control and antiemetics,.
- Monitor for any N/V or worsening abdominal pain and consider NG decompression if needed.
- IV PPI for now as heartburn remains his primary complaint.
- Patient started on IV Solu-Medrol and IV Flagyl.
- Repeat abdominal x-ray in the morning SHOWING Persistent SBO
- Continue with conservative measures for now.
- Started on clears and if tolerating it stop IVF later today.
- Surgery input
Benign Hypertension
- cont home regimen
Chronic immunosuppressive state
-Imuran continued
DVT Prophylaxis: Lovenox
Code Status: Full
d/w with Gi
Anticipated Discharge: > 48 hours
Subjective/Interval History
-
Date of Service: August 03, 2024
states had small bm yesterday
Objective Data
-
Labs:
Laboratory Results
08/03/24
06:41
WBC 5.4
Hgb 14.2
Hct 38.6 L
Plt Count 191 D
Sodium 140
Potassium 4.7
Chloride 108 H
Carbon Dioxide 21 L
BUN 17
Creatinine 0.9
Glucose 97
Calcium 8.9
Vital Signs:
Vital Signs
Temp Pulse Resp BP Pulse Ox
98.1 F 70 18 161/70 96
08/03/24 07:01 08/03/24 08:17 08/03/24 07:01 08/03/24 08:17 08/03/24 07:01
I&O
08/02/24 08/03/24 08/04/24
06:59 06:59 06:59
Intake Total 480 / 480
Balance 480 / 480
--- NOTE | 2024-08-03 15:05 | CM ---
CM following re: discharge planning.
Reviewed pt's chart, met with pt.
Per chart review, gastroenterology following, continue supportive care.
Pt reports he lives with spouse 2SH and pt described himself as independent in all areas [employer], drives.
D/C plan: home with anticipated no needs. Spouse to transport at discharge.
CM will follow with discharge plan updates as hospitalization progresses
[2024-08-03 15:31] VITALS: BP 148/72
[2024-08-03] MEDS: LIPITOR 40 MG PO (17:52)
[2024-08-03] MEDS: LOVENOX 40 MG SC (17:52)
[2024-08-03] MEDS: MELATONIN 5 MG PO (21:55)
[2024-08-03 23:19] VITALS: BP 133/67
[2024-08-04] MEDS: SOLU-MEDROL PF 20 MG IV ×2 (02:09→11:26)
[2024-08-04] MEDS: FLAGYL 500 MG 100 IV ×2 (02:10→11:27)
[2024-08-04 07:24] VITALS: BP 126/71
--- NOTE | 2024-08-04 07:56 | W.PN.GI.CBS2 ---
Today's Communication / Plan
-
-Change steroids to prednisone 40 mg daily and taper by 5 mg every week
-Continue Flagyl 500 mg twice daily for 10 days after DC
-LRD
OK for DC if tolerates diet
Assessment / Plan
-
68year-old male with past medical history of small bowel/colon Crohn's disease diagnosed at age 18 status post resection majority of the small bowel (in the ) except for 6 feet, history of anal fistula repair. He has tried Remicade in the past
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 Tried Cimzia in the past without improvement. Has been maintained on Imuran 150 mg daily for many years as well as Lomotil , history of hypertension, hyperlipidemia, BPH, testicular cancer status post
right orchiectomy, sciatica, nephrolithiasis, gallstone pancreatitis status postcholecystectomy 02/18/2023 with most recent colonoscopy performed in May 2022 showing mild ulceration in the neoterminal ileum in the ileocecal valve, quiescent
colitis in the rest of the colon was unremarkable. No chronic inflammation in the biopsies from the small bowel and the colon. Who presents to the emergency room with abdominal pain and GERD like symptoms. We are asked to evaluate for partial
small bowel obstruction. Patient with increase in diarrhea not treated by Lomotil more recently over the past 4 to 5 months. Patient switched to cholestyramine with thickening of bowel movements. Increase in reflux symptoms over the past 2 months.
With worsening of abdominal pain over the past couple days. CT findings with severe wall thickening of the distal most terminal ileum extending to the ileocecal valve with associated upstream small bowel dilatation. WBC 4.6, hemoglobin 14.3,
hematocrit 39.7, platelets 157, ESR pending, CRP 24.7, sodium 141, potassium 3.9, chloride 109, CO2 23, BUN 15, creatinine 1.0, glucose 74, total bilirubin 1.2, AST 23, ALT 20, alk phos 79, fecal Bism[place] Pro pending as patient has not had a bowel
movement since yesterday afternoon. He is without any nausea or vomiting. His abdomen is not distended.
Impression:
Small bowel obstruction/partial small bowel obstruction (CT findings of severe wall thickening of the distalmost terminal ileum extending to the ileocecal valve)-most likely from flare with possible stricturing Crohn's
History of Crohn's disease of the small bowel/colon
--Status post resection majority of small bowel () except for 6 feet
--Currently on Imuran 150 mg daily
--Previously was taking Lomotil, however was not working and stopped about 4 to 5 months ago. Switch to cholestyramine twice a day, last dose on
Plan:
-Sx improving resolving PSBO, although obstruction series from 08/03/2024 shows persistent PSBO clinically he is doing remarkably well passing gas having bowel movements and pain has resolved most likely obstruction has resolved
-Will advance to LRD
-CRP trending down
-Change steroids to prednisone 40 mg daily and taper by 5 mg every week
-Continue Flagyl 500 mg twice daily for 10 days after DC
-Viral hepatitis serologies are negative QuantiFERON is pending
-Continue pantoprazole 40 mg daily
-Continue Imuran 150 mg p.o. daily and folic acid
-can resume his OP meds except hold the melxicam, Questran and Lomotil
-Avoid NSAIDS
-Follow-up appointment made with Dr. Cai on 08/09/2024 at 12 PM to discuss starting biologics
-OK to DC home today if tolerates diet
Subjective
Subjective
Date of Service: August 04, 2024
Symptoms have markedly improved pain has completely resolved.
He has been having bowel movements and passing gas, no rectal bleeding, no nausea or vomiting
Objective
Data Reviewed
Laboratory Data:
Laboratory Results
08/03/24 06:41
08/03/24 06:41
Laboratory Results
Total Bilirubin 1.2 mg/dl (0.2-1.3) 08/01/24 13:39
AST 23 U/L (17-59) 08/01/24 13:39
ALT 20 U/L (0-50) 08/01/24 13:39
Alkaline Phosphatase 79 U/L (38-126) 08/01/24 13:39
Lipase 40 U/L (23-300) 08/01/24 13:39
Laboratory Tests
08/02/24
10:13
Hepatitis A Ab Total Negative
Hep Bs Antigen Negative
Hep Bs Antibody Indeterminate
Hep B Core Total Ab Negative
Hepatitis C Antibody Negative
Vital Signs and I&O:
Vital Signs
Temp Pulse Resp BP Pulse Ox
98.1 F 60 16 126/71 96
08/04/24 07:24 08/04/24 07:24 08/04/24 07:24 08/04/24 07:24 08/04/24 07:24
I&O
08/03/24 08/04/24 08/05/24
06:59 06:59 06:59
Intake Total 700 / 700
Balance 700 / 700
Physical Exam
Physical Exam
Cardiology: Normal Sinus Rhythm
Pulmonary: Clear
GI: Soft, Non Distended, Non Tender, Normal Bowel Sounds and Other
[2024-08-04] MEDS: RESTASIS 0.05% OPHTHALMIC EMULSION 1 DROPS BOTH EYES (08:22)
[2024-08-04] MEDS: THERAGRAN 1 TABLET PO (08:22)
[2024-08-04] MEDS: VITAMIN B-12 1000 MCG PO (08:22)
[2024-08-04] MEDS: COZAAR 50 MG PO (08:22)
[2024-08-04] MEDS: FOLVITE 1 MG PO (08:22)
[2024-08-04] MEDS: IMURAN 150 MG PO (08:22)
[2024-08-04] MEDS: NSS (PRESERVATIVE FREE) 10 ML IV (08:23)
[2024-08-04] MEDS: PROTONIX IV 40 MG IV (08:23)
--- NOTE | 2024-08-04 10:41 | W.PN.HOSP.TC ---
Today's Communication/Plan
-
dc home
OP GI f/u
po steroids/flagyl
Assessment / Plan
Assessment / Plan
General: In no acute distress
HEENT: Moist mucous membranes
Respiratory: Clear; No Wheezes, Rales or Rhonchi
Cardiac: S1/S2 and Regular Rhythm; No Murmur
GI: Soft, Non Distended, Normal Bowel Sounds, Non tender midline scar noted
Musculoskeletal: No Clubbing, No Cyanosis and No Edema
Neuro: AO x 3
A/P: Patient is a 68y M with PMH significant for Crohn's disease who presents to ED complaining of heartburn x 3 weeks and now abdominal pain.
Terminal Ileitis / Crohn's Disease concern for flare UP
Partial SBO secondary to the above
- IVF, pain control and antiemetics,.
- Monitor for any N/V or worsening abdominal pain and consider NG decompression if needed.
- IV PPI for now as heartburn remains his primary complaint.
- Patient started on IV Solu-Medrol and IV Flagyl. Plan to transiton to po steroids and po flagyl on dc
- Repeat abdominal x-ray in the morning SHOWING Persistent SBO howver, pt having bm. no abd pain or nausea or vomiting. seems to have resolved
- Continue with conservative measures for now.
- tolerated LRD.
- Surgery input
Benign Hypertension
- cont home regimen
Chronic immunosuppressive state
-Imuran continued
DVT Prophylaxis: Lovenox
Code Status: Full
More than 30 minutes spent in discharge including
Final examination of the patient
Summarizing hospital stay
Instructions for continuing care to all relevant caregivers
Preparation of discharge records, prescriptions, and referral forms
Total time spent (in minutes): 52
Anticipated Discharge: Today
Subjective/Interval History
-
Date of Service: August 04, 2024
feeling better
having bm
tolerated LRD
Objective Data
-
Vital Signs:
Vital Signs
Temp Pulse Resp BP Pulse Ox
98.1 F 60 16 126/71 96
08/04/24 07:24 08/04/24 08:22 08/04/24 07:24 08/04/24 08:22 08/04/24 07:24
I&O
08/03/24 08/04/24 08/05/24
06:59 06:59 06:59
Intake Total 700 / 700
Balance 700 / 700
--- NOTE | 2024-08-04 10:47 | W.DCSUMMARY ---
Discharge Summary
Discharge Data
Date of Admission: 08/01/24
Date of Discharge: 08/04/24
-
Pending Results: No
Hospital Course
68-year-old male with past medical history of severe Crohn's disease, hypertension presenting from home with complaints of severe abdominal pain. Patient underwent abdominal imaging today which showed patient with terminal ileitis and partial small
bowel obstruction. Patient was kept NPO. IV fluids were started. Pain control medications were added. Patient was eval by gastroenterology and general surgery. Patient symptomology consistent with Crohn's flareup. Patient underwent repeat
abdominal x-ray which showed partial small bowel obstruction. Patient was started on IV steroids and IV Flagyl. Patient's symptoms improved. Patient with no nausea or vomiting. Patient started having bowel movement and passing flatulence
consistently. Patient diet was advanced to clear liquid diet. Patient was tolerating liquid diet and IV fluid was discontinued. Patient diet was advanced to low residue diet which she was able to tolerate without any difficulty. Patient be
discharged home on p.o. prednisone taper regimen and Flagyl. Plan to start biologic as outpatient.
Discharge Plan
-
Patient Disposition: Home (Routine Discharge)
Discharge Diagnosis/Procedures: Terminal Ileitis / Crohn's Disease concern for flare UP
Partial small bowel obstruction
Condition: Fair
Diet: Low Residue
Activity: As tolerated
Driving Restrictions: As prior to admission
Activity Restrictions/Additional Instructions:
prednisone 40 mg daily and taper by 5 mg every week
Referrals:
Kisha Cai MD [Active, Gastroenterology] - 08/09/24 12:00 pm
Yann Plunkett MD [Family Provider, Family Practice] - in less than 1 week
Prescriptions:
New
metronidazole 500 mg tablet
500 mg PO BID 10 Days Qty: 20 0RF
prednisone 10 mg Tablet
10 mg PO DIRECTED Qty: 90 0RF
Rx Instructions:
Prednisone 40 mg daily and taper by 5 mg every week
Continued
azathioprine 50 MG tablet
150 mg PO DAILY
multivitamin [Daily Multi-Vitamin] Tablet
1 tab PO DAILY
losartan 50 mg Tablet
50 mg PO DAILY
cyanocobalamin (vitamin B-12) 1,000 mcg Tablet
1,000 mcg PO DAILY Qty: 0
folic acid 400 mcg Tablet
0.4 mg PO DAILY
alfuzosin 10 mg Tablet Extended Release 24 Hr
10 mg PO QPM
cyclosporine [Restasis] 0.05 % Dropperette
1 drp BOTH EYES BID
Gemtesa 75 mg tablet
75 mg PO HS
atorvastatin [Lipitor] 40 mg Tablet
40 mg PO QPM
Held
diphenoxylate-atropine [Lomotil] 2.5-0.025 mg Tablet
2 tab PO DAILY
Hold Instructions: Resume on 08/11/24. Hold till OP evamanda w/Dr. Santana
cholestyramine 4 gram Powder In Packet
4 g PO BID
Hold Instructions: Resume on 08/09/24. Hold till OP eval w/Dr. Santana
Discontinued
meloxicam [Mobic] 15 mg Tablet
15 mg PO HS
Discharge Orders:
Discharge Patient (As Directed); Ordered 08/04/24
Ordered By: Reed De La Cruz
Discharge Date and Time
Print Language: TAJIK
--- NOTE | 2024-08-04 11:14 | CM ---
CM following re: discharge planning.
Reviewed pt;s chart, met with pt.
Discharge order noted. Pt is aware, expressed his agreement with discharge and pt stated his spouse will transport home.
IMM reviewed, [placed on chart, pt has a copy.
No after care VN services indicated.
D/C plan: home no needs. Spouse to transport.
[2024-08-04 12:59] VITALS: BP 129/72
[2024-08-05 04:19] LABS: Quantiferon Mitogen minus NIL 6.44 IU/mL; Quantiferon NIL 0.02 IU/mL; Quantiferon Plus TB1 minus NIL 0.01 IU/mL (<=0.34); Quantiferon Plus TB2 minus NIL 0.01 IU/mL (<=0.34); Quantiferon TB Gold Plus Negative (Negative)
[2024-08-05 20:43] LABS: Calprotectin, Fecal 620 ug/g (<=49)
== END 2024-08-04 13:15 | disposition home or self-care (01) | DRG 386 ==
LOC: 2 NORTH 20:47
PROVIDERS: Emergency Medicine; Nurse Practitioner; Surgery; ADMITTING PHYSICIAN Hospitalist; ATTENDING PHYSICIAN Hospitalist; CONSULT PHYSICIAN Surgery; EMERGENCY PHYSICIAN Emergency Medicine; FAMILY PHYSICIAN Family Medicine; OTHER PHYSICIAN Internal Medicine Gastroenterology
DX: K50.812 Crohn's disease of both small and large intestine with intestinal obstruction (principal); D84.821 Immunodeficiency due to drugs; I10 Essential (primary) hypertension; Z85.47 Personal history of malignant neoplasm of testis; Z87.442 Personal history of urinary calculi; Z88.2 Allergy status to sulfonamides; K21.9 Gastro-esophageal reflux disease without esophagitis; E78.00 Pure hypercholesterolemia, unspecified; Z90.49 Acquired absence of other specified parts of digestive tract; Z87.710 Personal history of (corrected) hypospadias; K76.0 Fatty (change of) liver, not elsewhere classified; M54.30 Sciatica, unspecified side; Z79.624 Long term (current) use of inhibitors of nucleotide synthesis; Z79.899 Other long term (current) drug therapy
CPT/HCPCS: 74019; 74177; 76700; 80048; 80053; 80061; 83690; 83993; 85025; 85027; 85652; 86140; 86480; 86704; 86706; 86708; 86803; 87340; 93005; 99285; J7500; Q9967

== ENCOUNTER → 2024-08-09 12:58 | Outpatient (REF) | payer MEDICARE, SELFPAY | LOC: RAD 12:58 | PROVIDERS: ATTENDING PHYSICIAN Internal Medicine Gastroenterology; FAMILY PHYSICIAN Family Medicine | DX: K50.90 Crohn's disease, unspecified, without complications (principal) | CPT/HCPCS: 74018 ==

== ENCOUNTER → 2024-11-24 08:16 | Outpatient (REF) | payer MEDICARE, SELFPAY | LOC: MRI 3T 08:16 | PROVIDERS: ATTENDING PHYSICIAN Internal Medicine Gastroenterology; FAMILY PHYSICIAN Family Medicine | DX: K50.90 Crohn's disease, unspecified, without complications (principal) | CPT/HCPCS: 72197; 74183; A9575 ==